=== PATIENT | male | born 1965 | race Caucasian/White ===

== ENCOUNTER 2018-08-15 13:22 | Emergency (ER) | payer SELFPAY, MEDICAID ==
[2018-08-15] MEDS: NIFEdipine 10 MG CAP PO (15:27)
== END 2018-08-15 16:13 | disposition home or self-care (01) ==
LOC: FTE 13:22
DX: M25.561 Pain in right knee (principal); I10 Essential (primary) hypertension; E11.9 Type 2 diabetes mellitus without complications
CPT/HCPCS: 73562; 99283-25